=== PATIENT | male | born 1950 | race Caucasian/White ===

== ENCOUNTER 2025-08-24 06:17 | Inpatient (IN) ==
--- NOTE | 2025-08-02 15:05 | Anesthesiology Consultation ---
Date of Service August 02, 2025 Assessment & Plan (1) Encounter for pre-operative examination: Chart Review Chart Review: Pending: Refer to Additional Notes / Consult section (Please obtain Cardio Clearance from (seen 07/29/25) as well as ask Surgeon office if pt is repeating labs prior to surgery) and Patient NOT seen in Pre Admission Testing Infectious Disease screening: Per PAT nursing assessment on 08/02/25, No known infectious disease contacts in past 10 days or current infectious disease symptoms. No recent travel outside the country. History Surgery Operation Date: 08/11/25 10:20 Proposed Procedures p Percutaneous Endovascular Abdominal Aneurysm Repair - Solomon Gillis MD Height/Weight Height: 5 ft 9 in Weight: 88.451 kg Allergies Allergy/AdvReac Type Severity Reaction Status Date / Time metformin AdvReac Mild Diarrhea Verified 08/02/25 13:34 Medications Home Medications Medication Instructions Recorded Confirmed Last Taken acetaminophen 500 mg tablet 500 mg PO Q6H PRN Pain 03/03/24 08/02/25 07/06/25 09:00 amlodipine 10 mg tablet 10 mg PO QAM 03/03/24 08/02/25 07/06/25 19:00 aspirin 81 mg tablet,delayed 81 mg PO DAILY 03/03/24 08/02/25 07/07/25 05:00 release atorvastatin 80 mg tablet 80 mg PO HS 03/03/24 08/02/25 07/07/25 05:00 garlic 1,000 mg capsule 1,000 mg PO DAILY 03/03/24 08/02/25 Unknown glimepiride 2 mg tablet 2 mg PO QAM 03/03/24 08/02/25 07/06/25 19:00 hydrochlorothiazide 25 mg tablet 12.5 mg PO QAM 03/03/24 08/02/25 07/06/25 07:00 insulin glargine 100 unit/mL (3 30 unit subcut QPM 03/03/24 08/02/25 07/06/25 19:00 mL) subcutaneous pen (Basaglar KwikPen U-100 Insulin) isosorbide mononitrate 60 mg 60 mg PO QAM 03/03/24 08/02/25 07/06/25 07:00 tablet,extended release 24 hr lisinopril 30 mg tablet 30 mg PO QAM 03/03/24 08/02/2507/06/25 07:00 metoprolol succinate 100 mg 100 mg PO BID 03/03/24 08/02/25 07/07/25 05:00 tablet,extended release 24 hr (Toprol XL) omega 9-zul-kpa-fish oil 300 1 cap PO DAILY 03/03/24 08/02/25 Unknown mg-1,000 mg capsule (Fish Oil) blood-glucose sensor (Dexcom G7 #9 ea 10/30/24 05/20/25 Unknown Sensor device) cholecalciferol (vitamin D3) 25 25 mcg PO DAILY #30 caps 11/13/24 08/02/25 07/07/25 05:00 mcg (1,000 unit) capsule insulin aspart 5 unit subcut TID #15 mL 11/14/24 08/02/25 Unknown (niacinamide)(U-100) 100 unit/mL(3 mL) subcutaneous pen (Fiasp FlexTouch U-100 Insulin) ibuprofen 200 mg tablet 200 mg PO Q6H PRN Pain 05/20/25 08/02/25 07/06/25 09:00 clopidogrel 75 mg tablet (Plavix) 75 mg PO QAM 07/07/25 08/02/25 07/07/25 05:00 oxycodone 5 mg tablet 5 mg PO Q6H PRN pain #7 tabs 07/08/25 08/02/25 Unknown Past Medical History Medical History (Updated 08/04/25 @ 10:03 by Lluvia Valerio PA-C) AAA (abdominal aortic aneurysm) Infrarenal AAA increased in size, 5.2 x 5x5.7 cm CAD (coronary artery disease) CABG x 2 1998 Carotid artery stenosis s/p R TCAR 07/07/25; pt with chronic L carotid occlusion Chronic pain CKD (chronic kidney disease), stage III follows with neph dr. 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 Chávez to manage, trying medication adjustments. Lung nodule Mesenteric artery stenosis Per Vascular note, pt had imaging 06/08/2025 which demonstrates AAA measuring 5.1 cm in diameter, mild plaque at his celiac artery, and at least 50% stenosis of his SMA, occlusion versus near occlusion of his left renal artery and left renal atrophy with multiple cysts throughout both kidneys. Postoperative urinary retention Renal artery stenosis Per Vascular note, pt had imaging 06/08/2025 which demonstrates AAA measuring 5.1 cm in diameter, mild plaque at his celiac artery, and at least 50% stenosis of his SMA, occlusion versus near occlusion of his left renal artery and left renal atrophy with multiple cysts throughout both kidneys. Shoulder arthritis Sleep apnea unable to tolerate cpap Past Surgical History Surgical History (Updated 08/04/25 @ 10:03 by Lluvia Valerio PA-C) History of epidural steroid injection into lumbar spine History of lumbar surgery due to L3 disc herniation, [facility] Hx laparoscopic cholecystectomy (2018) Hx of basal cell carcinoma excision Hx of CABG (09/1999) x2 vessel- [facility]- follows with cardio Dr. Chávez (~ 1 month) Hx of cardiac catheterization (09/1999) went on to have CABG at [place], [place], follows with Dr. Chávez Hx of colonoscopy with polypectomy Hx of shoulder surgery (1989) right shoulder / tendon repair S/P vascular surgery 07/07/25 > right TCAR: GA: MAC#3, ETT#8.0, DVL x 1 atraumatic, Gr View 1 Social History Smoking Status: Former smoker Do You Dip or Chew Tobacco: No Smoking End Date: quit ~35-40 yrs ago Hx Alcohol Use: Yes Alcohol type: beer alcohol intake frequency: a few times a week Hx Substance Use: Yes (occasional use - advised) substance use type: marijuana Lab Results Anesthesia Preop Results Results Anesthesia Widget: WBC 9.68 K/ul (4.8-10.8) 07/02/25 Hgb 14.4 g/dl (14.0-18.0) 07/02/25 Hct 45.4 % (42.0-52.0) 07/02/25 Plt 175 K/uL (130-400) 07/02/25 Na 143 mmol/L (136-145) 07/07/25 K 4.3 mmol/L (3.5-5.1) 07/07/25 Cl 110 mmol/L (98-107) H 07/07/25 CO2 26 mmol/L (21-32) 07/07/25 BUN 39 mg/dl (6-23) H 07/07/25 Creat 1.66 mg/dl (0.6-1.4) H 07/07/25 Glucose Level 159 mg/dl (70-99(Fasting)) H 07/07/25 POC Glucose 101 mg/dl (70-99) H 07/08/25 PT 11.4 Seconds (9.0-12.0) 07/02/25 PTT 27 Seconds (21-31) 07/02/25 INR 1.1 (0.9-1.1) 07/02/25 Blood Type A Positive 07/07/25 Antibody Screen NEGATIVE 07/07/25 Testing Electrocardiogram Date: 07/02/25 Findings: + NSR @ (60bpm) indeterminate axis. LBBB. Per Anesthesia Consult 07/05/25, "Per verbal from cardiology provider Jyoti IRWIN "No changes on EKG from previous. Patient cleared for surgery." Chest X-Ray Date: 07/02/25 Findings: + NAD Echocardiogram Date: 04/07/24 EF: 50-55% LV Function: normal RWMA: + none Wall thickness is mildly increased. RSVP 19mmHg Mild-Mod MR. Mild AR. Other Testing Neck CTA 06/08/25 Occlusion or near occlusion of the left ICA Occlusion or near occlusion of the right vertebral artery Approximately 75% stenosis proximal right ICA Prominent nodule in the left thyroid lobe Abdominal CTA 06/08/25 Infrarenal AAA increased in size, 5.2 x 5x5.7 cm Eccentric atheromatous plaque with calcification seen at the origin of coeliac artery causing 20-30% luminal narrowing Atheromatous plaque with calcification seen at the origin of superior mesenteric artery causing 50% luminal narrowing Atheromatous plaque with calcification seen at the origin of right main renal artery causing 50% luminal narrowing Atheromatous plaque with calcification seen at the origin of left main renal artery causing near total occlusion Bilateral common, external and internal iliac arteries show atheromatous plaque with calcification causing 20-30% luminal narrowing Abdominal US 05/21/25 Large distal aortic aneurysm which has increased in size from prior study. CTA characterization is recommended. Within the distal aorta, there is focal aneurysmal dilatation measuring up to 7.5 cm.
[2025-08-24] MEDS ORDERED: MIDAZOLAM HCL 1 MG/ML 2ML VIAL ONE (06:39)
[2025-08-24] MEDS ORDERED: ROCURONIUM BROMIDE 10 MG/ML 5 ML VIAL IV ONE ×2 (06:41→09:13)
[2025-08-24] MEDS ORDERED: PROPOFOL IV EMULSION 10 MG/ML 20 ML VIAL IV ONE (06:41)
[2025-08-24] MEDS ORDERED: ONDANSETRON INJ 2 MG/ML 2 ML VIAL ONE (06:41)
[2025-08-24] MEDS ORDERED: LIDOCAINE 2% 2 ML VIAL/AMP(20MG/ML) INFIL ONE ×2 (06:41)
[2025-08-24] MEDS ORDERED: NITROGLYCERIN 5 MG/ML 10 ML VIAL ONE (06:42)
[2025-08-24] MEDS ORDERED: PHENYLEPHRINE HCL 10 MG/ML VIAL ONE ×3 (06:42→07:09)
[2025-08-24] MEDS ORDERED: DEXAMETHASONE SOD INJ 4 MG/ML VIAL ONE (06:42)
[2025-08-24] MEDS ORDERED: SUCCINYLCHOLINE CHLORIDE 20 MG/ML 10 ML VIAL IV ONE (06:48)
[2025-08-24 06:55] LABS: Anion Gap 7.0 (3-11); Blood Urea Nitrogen 35.0 mg/dl (6-23); Calcium 9.8 mg/dl (8.6-10.3); Carbon Dioxide 26.0 mmol/L (21-32); Chloride 111.0 mmol/L (98-107); Creatinine Clr Calc Pharmacy 45.2 ml/min; Glucose 209.0 mg/dl (70-99(Fasting)); Potassium 4.9 mmol/L (3.5-5.1); Sodium 144.0 mmol/L (136-145)
[2025-08-24] MEDS: SODIUM CHLORIDE 0.9% 1,000 ML IV SCH ×2 (07:00→12:26)
[2025-08-24] MEDS ORDERED: NALOXONE HCL 0.4 MG/1 ML VIAL/CARP IV PRN (07:13)
[2025-08-24] MEDS ORDERED: ATROPINE SULFATE 0.1 MG/ML 10ML SYR IV PRN (07:13)
[2025-08-24] MEDS ORDERED: PROMETHAZINE HCL 6.25 MG in SODIUM CHLORIDE 0.9% 50 ML IV PRN (07:13)
[2025-08-24] MEDS ORDERED: ONDANSETRON INJ 2 MG/ML 2 ML VIAL IV PRN ×2 (07:13→11:53)
[2025-08-24] MEDS ORDERED: FLUMAZENIL 0.1 MG/1 ML 10 ML VIAL IV PRN (07:13)
[2025-08-24] MEDS ORDERED: ETOMIDATE 2 MG/ML 20 ML VIAL IV ONE (07:26)
[2025-08-24] MEDS ORDERED: HEPARIN SOD (PORCINE) 1000 UNIT/ML ONE (07:32)
--- NOTE | 2025-08-24 07:49 | History & Physical Report ---
Date of Service August 24, 2025 History of Present Illness Primary Care Provider: Billie Alvarado PA-C Name: EWELINA LYNN Patient Number: [id number] : 1950 Date of Service: 07/26/2025 Chief Complaint: _AAA, Follow-up after TCAR HPI: _Mr. Lynn is an elderly male who presents to Dr Gillis's vascular surgery clinic for a 2 wk follow up visit after undergoing uncomplicated R TCAR at [facility]. Pt states he is feeling well. No new problems or concerns regarding his neck incision or his groin puncture. Pt denies any sx of cerebrovascular insufficiency, including amaurosis, unilateral weakness numbness or tingling, difficulty speaking or swallowing, facial droop. Patient does state that he would like to proceed with his aneurysm surgery if he is able to do so. Previous imaging had demonstrated him to have an infrarenal AAA measuring 5.1 cm in diameter. This was amenable to endovascular repair. Current Home Meds: (Last Updated 07/26 15:24) acetaminophen (Tylenol 500 mg oral tablet) 1,000 mg PO q6h PRN: as needed for pain amLODIPine (amLODIPine 10 mg oral tablet) TAKE 1 TABLET BY MOUTH ONCE DAILY aspirin (Aspir 81 oral delayed release tablet) 81 mg PO Daily atorvastatin (atorvastatin 80 mg oral tablet) TAKE 1 TABLET BY MOUTH AT BEDTIME cannabis (Medical Marijuana) 1 inh inhaled cholecalciferol (Vitamin D3 25 mcg (1000 intl units) oral tablet) 25 mcg PO Daily clopidogrel (Plavix 75 mg oral tablet) 75 mg PO Daily diabetes supplies (ONERuncomUCH ULTRA BLUE TEST STP) USE 1 STRIP TO CHECK GLUCOSE THREE TIMES DAILY BEFORE MEAL(S) diabetes supplies (COMFORT EZ [id number] MIS) diabetes supplies (ONETOUCH ULTRA ULTRA JONATHAN) diabetes supplies (ONETOUCH ULTRA 2 KIT) garlic (Garlic Oil oral capsule) 1 cap po daily glimepiride (glimepiride 2 mg oral tablet) 2 mg PO Daily hydroCHLOROthiazide (hydroCHLOROthiazide 25 mg oral tablet) TAKE 1/2 (ONE- HALF) TABLET BY MOUTH ONCE DAILY ibuprofen (ibuprofen 200 mg oral capsule) 400 mg PO q6h PRN: as needed for pain insulin glargine (Basaglar KwikPen 100 units/mL subcutaneous solution) 35 unit subQ qPM isosorbide mononitrate (isosorbide mononitrate 30 mg oral tablet, extended release) 60 mg PO qAM IMDUR (isosorbide mononitrate) is a SUSTAINED RELEASE tablet typically dosed daily. Do not confuse with ISORDIL (isosorbide dinitrate) commonly dosed three times daily. - C Murtiff 11/14 08:46 lisinopril (lisinopril 30 mg oral tablet) TAKE 1 TABLET BY MOUTH ONCE DAILY metoprolol (Metoprolol Succinate ER 100 mg oral tablet, extended release) TAKE 1 TABLET BY MOUTH TWICE DAILY omega-3 polyunsaturated fatty acids (EPA Fish Oil oral capsule) 1 cap PO Daily Allergies and Sensitivities: metFORMIN(stomach upset) Past Medical History: Problems: Mesenteric artery stenosis Bilateral carotid artery stenosis AAA (abdominal aortic aneurysm) without rupture Skin lesion OBJECTIVE Vitals: Last Updated 07/26/25 15:26 Date Temp BP Location Pulse RR SpO2 Pain 07/26/25 186/84 Left Arm, Manu 07/26/25 196/90 Right Arm 70 16 97 0 06/28/25 180/82 Left Arm 72 97 0 Vital Signs are the last 3 documented. No Orthostatic Data Available Height and Weight: Last Updated 07/26/25 15:25 Date BMI Wt(kg) Wt(lb) Method Ht(cm) (ft-in) Method 07/26/25 90.4 199 Standing Scale Heights and Weights are the last 3 documented. Physical Exam _Constitutional: In general patient is a healthy-appearing well-nourished well- developed elderly male in no distress. He is alert and oriented without any focal deficits. His right neck supraclavicular incision is well-healed. There is no erythema ecchymosis tenderness or discharge. His groin puncture is well- healed as well. His heart is regular, abdomen is soft nontender with normoactive bowel sounds in all 4 quadrants. Lungs are decreased but clear. Femoral pulses are +3. ASSESSMENT: _ PLAN: _ 1 ) _status post right TCAR Patient is over doing well since his recent procedure. He has no new concerning symptoms and his incision and puncture are healing well. We therefore would recommend that he undergo reevaluation of this in about 6 weeks with carotid US and return to the office at that time. Patient is to remain on his DAPT. This will not be interrupted for his upcoming aneurysm surgery. 2 ) _AAA Patient does have a known abdominal aortic aneurysm, imaging from June 2025 it indicated this to be about 5.1 cm in diameter. After discussion with Dr. Glilis, he recommends that patient be scheduled for percutaneous endovascular aneurysm repair. The procedure benefits and alternatives were discussed with the patient by myself. The risks of the procedure including but not limited to bleeding, infection, blood clots, artery damage requiring further surgery, inappropriate positioning/placement of the endograft requiring open surgery, kidney failure requiring hemodialysis, loss of limb, paralysis, heart attack, , were discussed with the patient by myself at Dr. Gillis's request. Patient expresses understanding and agreement to proceed. Patient's blood pressures were noted to be considerably elevated in our office today at 196/90 mmHg. Patient states that they have been high recently at home. We would suggest improved control of his blood pressure prior to undergoing his procedure. We will request clearance from his global regulatory lead for the upcoming procedure, as well as to assist with improved hypertension control in the perioperative period. Patient is agreeable to this plan. He is asked to call our office with any questions or concerns. Thank you for letting us participate in the care of this patient. I have personally spent_28__ minutes performing [id number] and [id number] activities on this date of service.Time does not include separately reported services. Activities Include: x__ review of the medical record _x_ obtaining a history _x_ physical exam/evaluation __ review labs _x_ review radiology reports _x_ counseling/educating patient/family/caregiver _x_ discussion/referral to other healthcare professional _x_ documenting care in the medical record __ independent interpretation of results _x_ communication of results to patient/family/caregiver _x_ coordination of care Signature Line Electronic Signature on File CC: Billie Alvarado PA-C [facility] [address] [facility] [id number] * CC: Ousmane Chávez MD [facility] [address] [place] [id number] * Electronically Reviewed/Signed by: Dorina Galindo PA-C Author Signature Dt/Tm:07/26/2025 04:29 PM [facility] [address] [place] [address] LM Result Type: HVI Outpt Note Date of Service: July 26, 2025 16:19 EDT Authorization Status: Final Author or Import Date: KAREN Galindo Lynn on July 26, 2025 16:29 EDT Verified By: KAREN Galindo Lynn on July 26, 2025 16:29 EDT Encounter info: [id number], [place] [address], Clinic, 07/26/2025 - 07/26/2025 Allergies Allergy/AdvReac Type Severity Reaction Status Date / Time metformin AdvReac Mild Diarrhea Verified 08/24/25 06:30 Home Medications Medication Instructions Recorded Confirmed Type acetaminophen 500 mg tablet 500 mg PO Q6H PRN Pain 03/03/24 08/24/25 History amlodipine 10 mg tablet 10 mg PO QAM 03/03/24 08/24/25 History aspirin 81 mg tablet,delayed 81 mg PO DAILY 03/03/24 08/24/25 History release atorvastatin 80 mg tablet 80 mg PO HS 03/03/24 08/24/25 History garlic 1,000 mg capsule 1,000 mg PO DAILY 03/03/24 08/24/25 History glimepiride 2 mg tablet 2 mg PO QAM 03/03/24 08/24/25 History hydrochlorothiazide 25 mg tablet 12.5 mg PO QAM 03/03/24 08/24/25 History insulin glargine 100 unit/mL (3 30 unit subcut QPM 03/03/24 08/02/25 History mL) subcutaneous pen (Basaglar KwikPen U-100 Insulin) isosorbide mononitrate 60 mg 60 mg PO QAM 03/03/24 08/24/25 History tablet,extended release 24 hr lisinopril 30 mg tablet 30 mg PO QAM 03/03/24 08/24/25 History metoprolol succinate 100 mg 100 mg PO BID 03/03/24 08/24/25 History tablet,extended release 24 hr (Toprol XL) omega 0-lmk-kyd-fish oil 300 1 cap PO DAILY 03/03/24 08/24/25 History mg-1,000 mg capsule (Fish Oil) blood-glucose sensor (Crossfader G7 #9 ea 10/30/24 05/20/25 Rx Sensor device) cholecalciferol (vitamin D3) 25 25 mcg PO DAILY #30 caps 11/13/24 08/24/25 Rx mcg (1,000 unit) capsule ibuprofen 200 mg tablet 200 mg PO Q6H PRN Pain 05/20/25 08/24/25 History clopidogrel 75 mg tablet (Plavix) 75 mg PO QAM 07/07/25 08/24/25 History oxycodone 5 mg tablet 5 mg PO Q6H PRN pain #7 tabs 07/08/25 08/24/25 Rx doxazosin 2 mg tablet 2 mg PO DAILY 08/24/25 08/24/25 History Past Med/Surg History Problem List S/P vascular surgery Stenosis of right internal carotid artery Hyperlipidemia with target low density lipoprotein (LDL) cholesterol less than 70 mg/dL Diabetes mellitus type 2 with complications Kidney calculi Lung nodule Fecal incontinence Vitamin D deficiency Chronic kidney disease with active medical management without dialysis, stage 3 (moderate) Hypertension Medical History Renal artery stenosis Per Vascular note, pt had imaging 06/08/2025 which demonstrates AAA measuring 5.1 cm in diameter, mild plaque at his celiac artery, and at least 50% stenosis of his SMA, occlusion versus near occlusion of his left renal artery and left renal atrophy with multiple cysts throughout both kidneys. Mesenteric artery stenosis Per Vascular note, pt had imaging 06/08/2025 which demonstrates AAA measuring 5.1 cm in diameter, mild plaque at his celiac artery, and at least 50% stenosis of his SMA, occlusion versus near occlusion of his left renal artery and left renal atrophy with multiple cysts throughout both kidneys. Lung nodule Postoperative urinary retention CAD (coronary artery disease) CABG x 2 1998 AAA (abdominal aortic aneurysm) Infrarenal AAA increased in size, 5.2 x 5x5.7 cm Carotid artery stenosis s/p R TCAR 07/07/25; pt with chronic L carotid occlusion Hx of basal cell carcinoma currently has one spot on right side, to be removed after carotid surgery CKD (chronic kidney disease), stage III follows with neph dr. oswald Sleep apnea unable to tolerate cpap Hypertension having current issues w/ blood pressure control, following with Dr. Chávez to manage, trying medication adjustments. 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 Hx of myocardial infarction 1998 (pt then had CABG) Chronic pain Shoulder arthritis Surgical History S/P vascular surgery 07/07/25 > right TCAR: GA: MAC#3, ETT#8.0, DVL x 1 atraumatic, Gr View 1 Hx of basal cell carcinoma excision Hx of colonoscopy with polypectomy Hx laparoscopic cholecystectomy (2018) History of lumbar surgery due to L3 disc herniation, [facility] History of epidural steroid injection into lumbar spine Hx of shoulder surgery (1989) right shoulder / tendon repair Hx of cardiac catheterization (09/1999) went on to have CABG at [place], [place], follows with Dr. Chávez Hx of CABG (09/1999) x2 vessel- [facility]- follows with cardio Dr. Chávez (~ 1 month) Social History Smoking Status: Former smoker Tobacco Type: Cigarettes Smoking End Date: quit ~35-40 yrs ago; Second Hand Exposure: No; Do You Dip or Chew Tobacco: No; Tobacco Cessation Education Requested by Patient: No Hx Alcohol Use: Yes Alcohol type: beer Alcohol Intake Frequency: Monthly or Less Alcohol Intake Frequency Comment: socially Hx Substance Use: Yes (occasional use - advised) Prescribed Medications: Marijuana Preferred Language: Yoruba Communication Ability: Effective Visual Impairment: No Limitations Hearing Ability: Normal Environmental Field Office Manager Required: No Beliefs That Will Affect Care: None marital status: Current Living Situation: Spouse current occupational status: retired Other Information That Helps Us Care for You: No Feels Safe at Home: Yes Safety Concerns: Feels Safe At This Time Diet: regular caffeine: Yes (soda daily) Dental Care, Regularly: Yes Physical Activity Frequency: 1-2 Times per Week Seatbelt Use: always Do you think of yourself as: straight/heterosexual Gender Identity: Male Assistive Devices: Denture - Upper and Glasses Assistive Devices Comment: upper partial; prn glasses Results & Data Vital Signs (Past 12 Hours) Vital Signs Temp Pulse Resp BP BP Pulse Ox O2 Del Method 08/24/25 06:37 Room Air 08/24/25 06:37 36.6 C 70 16 170/86 H 193/93 H 98 Room Air
--- NOTE | 2025-08-24 07:49 | History & Physical Bridge Note ---
Date of Service August 24, 2025 History & Physical Bridge Note I have examined the patient, reviewed the History & Physical and in the interval since the performance of the History & Physical I have noted the following changes of clinical significance: no changes noted
[2025-08-24] MEDS ORDERED: GLYCOPYRROLATE 0.2 MG/ML VIAL ONE (09:06)
[2025-08-24] MEDS ORDERED: SUGAMMADEX SODIUM 200 MG/2 ML VIAL IV ONE (09:21)
[2025-08-24] MEDS: VISIPAQUE IV PRN (09:34)
--- NOTE | 2025-08-24 09:45 | Procedure Note ---
Angiogram Post Procedure Fluoroscopy Time (minutes): 10.8 Radiation (mGy): 245 Contrast: 115 Post Operative Report Pre & Post Diagnosis Operation Date: 08/24/25 08:00 Pre-Op Diagnosis: Abdominal Aortic Aneurysm Post-Op Diagnosis: Abdominal Aortic Aneurysm I identified the patient and participated in the time-out.: Yes Procedure Operation Date: 08/24/25 08:00 Actual Procedures p Percutaneous Endovascular Abdominal Aortic Aneurysm Repair,Mechanical Closure of Bilateral Femoral Arteries(Bilateral) - Solomon Gillis MD Surgeon Solomon Gillis MD [employer] Helper none Estimated Blood Loss 50 Findings Consistent with Post-Op Diagnosis Specimens none Anesthesia Type General Complications none Disposition Accompanied Patient To Recovery: No Disposition: Recovery Room Indications This is a 75-year-old gentleman with a 5.1 cm abdominal aortic aneurysm. We recommended repair. He was a candidate for an endovascular repair. I have discussed the risks options and benefits of the procedure with the patient. The patient understands the risks options and benefits and agrees to the procedure. Description of Procedure The patient was brought to the OR and placed in supine position. Patient was intubated and general anesthesia was accomplished. A safety timeout was performed to identify patient's name, date of and the correct procedure. Abdomen and groins were prepped and draped in sterile fashion. Ultrasound guided percutaneous access of the right groin was performed. The right common femoral artery was patent. A percutaneous puncture was made in the right common femoral artery using ultrasound. The depth finder for the Manta device was used to me asure the depth of the puncture. It was found to be 4 cm. The depth finder was removed and the 8 [place] sheath inserted. We turned our attention to the right side and we similarly accessed the left common femoral artery. The left common femoral artery was patent. Using ultrasound left common femoral artery was punctured. The depth finder was used to measure the depth of the puncture of the left side and also found to be 3.5 cm from the skin edge. This was removed and 8 [place] sheath was inserted. Patient was heparinized with 8000 of IV heparin. Through the right groin, we advanced a soft Glidewire followed by a Kumpe catheter. The wire then was exchanged for a stiff Kiana wire. We then cannulated the aorta from the left side using 035 Glidewire and a Kumpe catheter. Once this was placed in the super renal aorta the wire was exchanged to a Kiana wire.. We then upsized our access on the right side with a 12 [place] dilator and subsequently to 16 [place] dry seal sheath. The left groin sheath was then exchanged to a 12 [place] dry seal sheath. The sheaths were advanced all the way up in the aortic sac. A marker pig was inserted to the left groin. Aortography was performed. The level of the renal arteries were marked on the screen. The left renal artery had a known total occlusion. This showed patency of the right renal artery and a acceptable neck for deployment of the graft. We advanced the device ([place] excluder conformable 20 mm x 14.5 mm x 12 cm) through the right sheath. The shaft of the graft was then deployed. An aortogram was performed. Both renal arteries were visualized just above the top of the deployed graft. Aortogram confirmed good location of the proximal end of the graft. The hooks were then deployed. Cannulation of the gate was then accomplished using an 035 glidewire and a Right Hemispherepke catheter. The wire spun easily in the neck of the graft. The 035 Glidewire was removed and a Kiana wire was reinserted. A marker pigtail was then inserted over the Jensen wire. The 12 [place] sheath was then pulled down into the external iliac and an arteriogram was performed of the left iliac system. This identified the origin of the hypogastric and the left side. We then removed the pigtail. We reinserted a 12 [place] sheath dilator and advanced the sheath into the gate of the graft. Prior to inserting the contralateral limb we deployed the ipsilateral limb to complete the deployment of the graft. The device was then removed from the right groin. We then inserted an 16mm x 14.5 mm x 14 contralateral limb. The 12 [place] sheath was then pulled down to below the level of the contralateral limb. Contralateral limb was then deployed without difficulty. The 16 [place] sheath on the right side was then pulled down into the pelvis. Hand-injection was then performed to cony where the bifurcation of the common iliac artery was. We then chose a 16 x 14.5 x 10 contralateral limb to extend the right side limb. The graft was advanced to the 16 [place] sheath. It was deployed with the distal end falling just above the iliac bifurcation. The MOB balloon was then inserted through the left sheath. The proximal attachment site, the gate and the distal attachment site were ballooned with the MOB balloon. The balloon was then removed. Was inserted through the right side 16 [place] sheath and then dilated the overlap of the limbs and the distal attachment site of the right limb. The balloon was then removed. The pigtail was then inserted through the left side to above the renal arteries. A final arteriogram was then performed which showed no evidence of a type I endoleak. There appeared to be 2 type II endoleak's in the posterior aspect of the sac. Graft showed no evidence of narrowing throughout. An meirer wire was then reinserted into the pigtail and the pigtail removed. The 12 [place] sheath was then pulled and a 14 [place] Manta device was inserted. This was deployed without difficulty. No bleeding was n oted after deployment. The right groin sheath was then also pulled. An 14 [place] Manta device was inserted and deployed. No evidence of bleeding was seen on the right side either. Sterile dressings were applied to the wounds.The patient left the operation room in satisfactory condition and tolerated the procedure well. All needle and sponge counts were correct at the end of the procedure. I attest to the content of the Intraoperative Record and any orders documented therein. Any exceptions are noted below.
[2025-08-24] MEDS: LABETALOL HCL IV 5 MG/ML 20ML IV STA (10:09)
[2025-08-24 10:12] LABS: Hematocrit (blood only) 37.2 % (42.0-52.0); Hemoglobin 12.0 g/dL (14.0-18.0)
[2025-08-24] MEDS ORDERED: IBUPROFEN 200 MG TAB PO PRN (11:53)
[2025-08-24] MEDS: LABETALOL HCL IV 5 MG/ML 20ML IV ONE (12:09)
--- NOTE | 2025-08-24 12:10 | Critical Care Consultation ---
Date of Consultation August 24, 2025 Assessment & Plan (1) Chronic kidney disease with active medical management without dialysis, stage 3 (moderate): (2) Hypertension: (3) Diabetes mellitus type 2 with complications: (4) Carotid artery stenosis: (5) CAD (coronary artery disease): (6) Hyperlipidemia: (7) Hypertensive urgency: Plan Livan Israel is a 75-year-old male with past medical history of CAD s/p CABG x 2 vessel, [place], HTN, HLD, DMII, AAA, mesenteric stenosis, CKD stage III, ECTOR unable to tolerate CPAP, left carotid occlusion, right carotid stenosis s/p TCAR on 07/07/2025; who presented to [facility] on 08/24/2025 for a planned (PEVAR) percutaneous endovascular abdominal aortic aneurysm repair. Abdominal aortic aneurysm; mesenteric stenosis -Neurovascular checks per protocol -Maintain SBP > 100 and < 180. -Vascular surgery primary, following Right carotid stenosis s/p right TCAR; chronic left carotid occlusion -Cont ASA and plavix. Hypertension; Hyperlipidemia; CAD s/p 2 vessel CABG -Cont atorvastatin -Cont amlodipine, HCTZ, lisinopril, and metoprolol. -Cont isosorbide mononitrate Chronic kidney disease stage III -Creatinine baseline 1.5-1.6 -Monitor renal function qam Diabetes Mellitus Type II -Maintain BG 140-180 -On 30 units glargine qhs -Hypoglycemia protocol ordered Urinary retention -Ferreira in place. Will maintain at this time. -Cont doxazosin. Thank you for allowing us to participate in this patient's care. Please feel free to reach out with questions or concerns. Supervising Physician Co-Signing Physician Notes I saw and evaluated the patient with DC Hinton, and agree with findings and plan as documented in the note. 75-year-old male admitted to the hospital post PEVAR In the PACU patient had some bleeding from the left colon for which he had compression dressing placed. At the time of examination patient's was in the room Systolic blood pressure was in the 170s to 180s, heart rate in the 70s. Patient was not in any distress He denied any chest pain, no shortness of breath No abdominal pain, no nausea or vomiting No headache, no blurry vision. The only complaint he had was some discomfort in the groin area. Constitutional: No acute distress HEENT: EOMI, PERRLA Respiratory system: Good air entry bilaterally, no wheeze, no rhonchi, no crackles CVS: S1-S2 positive, no murmurs or gallops Abdomen: Soft, nontender, nondistended, positive bowel sounds x4, obese Extremities: +2 pulses bilaterally radialis/+1 bilateral dorsalis pedis, no cyanosis, no edema, warm bilateral lower extremity Neuro: Awake alert oriented x3 Psych: Normal mood and affect G/U: Positive Ferreira --Prophylaxis VTE: None GI: None Lines: Right radial, peripheral Diet: Cardiac Plan: Strict in and out Monitor for pulses bilateral lower extremity Monitor for signs of any bleeding Postop antibiotic as per surgery Patient blood pressure is a bit on the higher side, he is complaining of some groin discomfort, will give him some pain medication. Will start the patient on nicardipine drip, case discussed with surgery Please note the above document was generated using voice recognition software. It may contain grammatical, syntax or spelling errors.Any formal questions or concerns about the content, text or information contained within the body of this dictation should be directly addressed to the provider for clarification. History of Present Illness Attending Physician: Solomon Gillis MD History of Present Illness Nico Israel is a 75-year-old male with past medical history of CAD s/p CABG x 2 vessel, [place], HTN, HLD, DMII, AAA, mesenteric stenosis, CKD stage III, ECTOR unable to tolerate CPAP, left carotid occlusion. right carotid stenosis s/p right TCAR on 07/07/2025; who presented to [facility] on 08/24/2025 for a planned (PEVAR) percutaneous endovascular abdominal aortic aneurysm repair. In the June 2025 imaging had shown a 5.1cm abdominal aortic aneurysm that was amendable to repair. On the post TCAR follow visit with Dr. Gillis's vascular surgery clinic on 07/26/2025 the aneurysm was discussed along with risk and potential for repair. Patient elected to move forward with PEVAR. Per report the procedure went well without complication. Patient was hypertensive post operatively requiring multiple doses of labetalol and hydralazine. Routine assessment in recovery noted pulsatile bleeding for the left femoral access site. Pressure was held and hemostasis was achieved. Patient brought to ICU post operatively for continued evaluation and management of percutaneous endovascular repair of abdominal aortic aneurysm. Allergies Allergy/AdvReac Type Severity Reaction Status Date / Time metformin AdvReac Mild Diarrhea Verified 08/24/25 06:30 Home Medications Medication Instructions Recorded Confirmed Type acetaminophen 500 mg tablet 500 mg PO Q6H PRN Pain 03/03/24 08/24/25 History amlodipine 10 mg tablet 10 mg PO QAM 03/03/24 08/24/25 History aspirin 81 mg tablet,delayed 81 mg PO DAILY 03/03/24 08/24/25 History release atorvastatin 80 mg tablet 80 mg PO HS 03/03/24 08/24/25 History garlic 1,000 mg capsule 1,000 mg PO DAILY 03/03/24 08/24/25 History glimepiride 2 mg tablet 2 mg PO QAM 03/03/24 08/24/25 History hydrochlorothiazide 25 mg tablet 12.5 mg PO QAM 03/03/24 08/24/25 History insulin glargine 100 unit/mL (3 30 unit subcut QPM 03/03/24 08/02/25 History mL) subcutaneous pen (RSensaglar KwikPen U-100 Insulin) isosorbide mononitrate 60 mg 60 mg PO QAM 03/03/24 08/24/25 History tablet,extended release 24 hr lisinopril 30 mg tablet 30 mg PO QAM 03/03/24 08/24/25 History metoprolol succinate 100 mg 100 mg PO BID 03/03/24 08/24/25 History tablet,extended release 24 hr (Toprol XL) omega 9-fdh-tff-fish oil 300 1 cap PO DAILY 03/03/24 08/24/25 History mg-1,000 mg capsule (Fish Oil) blood-glucose sensor ([employer] G7 #9 ea 10/30/24 05/20/25 Rx Sensor device) cholecalciferol (vitamin D3) 25 25 mcg PO DAILY #30 caps 11/13/24 08/24/25 Rx mcg (1,000 unit) capsule ibuprofen 200 mg tablet 200 mg PO Q6H PRN Pain 05/20/25 08/24/25 History clopidogrel 75 mg tablet (Plavix) 75 mg PO QAM 07/07/25 08/24/25 History oxycodone 5 mg tablet 5 mg PO Q6H PRN pain #7 tabs 07/08/25 08/24/25 Rx doxazosin 2 mg tablet 2 mg PO DAILY 08/24/25 08/24/25 History Patient History Medical History (Updated 08/24/25 @ 14:54 by Marly Kang MD, [facility]) Renal artery stenosis Per Vascular note, pt had imaging 06/08/2025 which demonstrates AAA measuring 5.1 cm in diameter, mild plaque at his celiac artery, and at least 50% stenosis of his SMA, occlusion versus near occlusion of his left renal artery and left renal atrophy with multiple cysts throughout both kidneys. Mesenteric artery stenosis Per Vascular note, pt had imaging 06/08/2025 which demonstrates AAA measuring 5.1 cm in diameter, mild plaque at his celiac artery, and at least 50% stenosis of his SMA, occlusion versus near occlusion of his left renal artery and left renal atrophy with multiple cysts throughout both kidneys. Lung nodule Postoperative urinary retention CAD (coronary artery disease) CABG x 2 1998 AAA (abdominal aortic aneurysm) Infrarenal AAA increased in size, 5.2 x 5x5.7 cm Carotid artery stenosis s/p R TCAR 07/07/25; pt with chronic L carotid occlusion Hx of basal cell carcinoma currently has one spot on right side, to be removed after carotid surgery CKD (chronic kidney disease), stage III follows with neph dr. oswald Sleep apnea unable to tolerate cpap Hypertension having current issues w/ blood pressure control, following with Dr. Chávez to manage, trying medication adjustments. 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 Hx of myocardial infarction 1998 (pt then had CABG) Chronic pain Shoulder arthritis Surgical History S/P vascular surgery 07/07/25 > right TCAR: GA: MAC#3, ETT#8.0, DVL x 1 atraumatic, Gr View 1 Hx of basal cell carcinoma excision Hx of colonoscopy with polypectomy Hx laparoscopic cholecystectomy (2018) History of lumbar surgery due to L3 disc herniation, [facility] History of epidural steroid injection into lumbar spine Hx of shoulder surgery (1989) right shoulder / tendon repair Hx of cardiac catheterization (09/1999) went on to have CABG at [place], [place], follows with Dr. Chávez [facility] Dr. [facility] (~ 1 month) Social History Smoking Status: Former smoker Tobacco Type: Cigarettes Smoking End Date: quit ~35-40 yrs ago; Second Hand Exposure: No; Do You Dip or Chew Tobacco: No; Tobacco Cessation Education Requested by Patient: No Hx Alcohol Use: Yes Alcohol type: beer Alcohol Intake Frequency: Monthly or Less Alcohol Intake Frequency Comment: socially Hx Substance Use: Yes (occasional use - advised) Prescribed Medications: Marijuana Preferred Language: Irish Communication Ability: Effective Visual Impairment: No Limitations Hearing Ability: Normal Face Boss Required: No Beliefs That Will Affect Care: None marital status: Current Living Situation: Spouse current occupational status: retired Other Information That Helps Us Care for You: No Feels Safe at Home: Yes Safety Concerns: Feels Safe At This Time Diet: regular caffeine: Yes (soda daily) Dental Care, Regularly: Yes Physical Activity Frequency: 1-2 Times per Week Seatbelt Use: always Do you think of yourself as: straight/heterosexual Gender Identity: Male Assistive Devices: Denture - Upper and Glasses Assistive Devices Comment: upper partial; prn glasses Review of Systems 2 Review of Systems: All systems reviewed & are unremarkable except as noted in HPI & below Physical Exam 2 Physical Exam: VITALS: Reviewed. WEIGHT/BMI reviewed. GEN: Pleasant, well-developed, NAD. PSYCH: Good Judgment. AOx3. Normal memory, mood, and affect. HEENT -Head: NC/AT; -Eyes: PERRL, EOMI. No discharge or redn ess; -Ears: External ears are normal. -Nose: Normal nares. NECK: Supple, with no masses. CV: RRR, no m/r/g. LUNGS: Clear in b/l upper lobes, diminished in b/l lower lobes. Chest rise symmetrical. Breathing nonlabored. ABD: Soft, NT/ND, NBS, no masses or organomegaly. : Ferreira draining yellow clear urine. SKIN: Warm, well perfused. No skin rashes or abnormal lesions. MSK: No deformities, Normal gait. bilateral groin access site with dressing in place. No hematoma or bleeding. EXT: No clubbing, cyanosis, or edema. Warm well perfused. PT and DP pulses in b/l lower extremities. NEURO:Normal muscle strength and tone. No focal deficits. Results & Data Results & Data Vital Signs (Past 12 Hours) Vital Signs Temp Pulse Pulse Pulse Resp BP BP 08/24/25 11:53 36.6 C 08/24/25 11:30 36.4 C L 70 16 151/71 H 08/24/25 11:20 71 14 152/73 H 08/24/25 11:10 73 22 173/80 H 08/24/25 11:00 71 18 172/84 H 08/24/25 10:50 69 18 163/89 H 08/24/25 10:40 66 22 132/76 08/24/25 10:30 75 16 183/94 H 08/24/25 10:20 76 17 183/89 H 08/24/25 10:10 72 11 L 196/94 H 08/24/25 10:09 71 196/94 H 08/24/25 10:00 73 13 189/92 H 08/24/25 09:51 36.3 C L 74 18 191/90 H 08/24/25 06:37 08/24/25 06:37 36.6 C 70 16 170/86 H BP BP Pulse Ox O2 Del Method O2 Flow Rate 08/24/25 11:53 08/24/25 11:30 161/61 H 96 Nasal Cannula 2 08/24/25 11:20 166/63 H 96 Nasal Cannula 2 08/24/25 11:10 183/70 H 98 Nasal Cannula 2 08/24/25 11:00 191/74 H 97 Nasal Cannula 2 08/24/25 10:50 191/72 H 99 Nasal Cannula 2 08/24/25 10:40 164/74 H 99 Nasal Cannula 2 08/24/25 10:30 200/77 H 95 Nasal Cannula 2 08/24/25 10:20 199/79 H 92 Room Air 08/24/25 10:10 205/86 H 94 Room Air 08/24/25 10:09 08/24/25 10:00 201/83 H 95 Room Air 08/24/25 09:51 202/85 H 98 Oxymask 4 08/24/25 06:37 Room Air 08/24/25 06:37 193/93 H 98 Room Air Laboratory Results 08/24/25 09:59 08/24/25 06:16 Critical Care Results & Data Vital Signs (Past 12 Hours) Vital Signs Temp Pulse Pulse Pulse Resp BP BP 08/24/25 11:53 36.6 C 08/24/25 11:30 36.4 C L 70 16 151/71 H 08/24/25 11:20 71 14 152/73 H 08/24/25 11:10 73 22 173/80 H 08/24/25 11:00 71 18 172/84 H 08/24/25 10:50 69 18 163/89 H 08/24/25 10:40 66 22 132/76 08/24/25 10:30 75 16 183/94 H 08/24/25 10:20 76 17 183/89 H 08/24/25 10:10 72 11 L 196/94 H 08/24/25 10:09 71 196/94 H 08/24/25 10:00 73 13 189/92 H 08/24/25 09:51 36.3 C L 74 18 191/90 H 08/24/25 06:37 08/24/25 06:37 36.6 C 70 16 170/86 H BP BP Pulse Ox O2 Del Method O2 Flow Rate 08/24/25 11:53 08/24/25 11:30 161/61 H 96 Nasal Cannula 2 08/24/25 11:20 166/63 H 96 Nasal Cannula 2 08/24/25 11:10 183/70 H 98 Nasal Cannula 2 08/24/25 11:00 191/74 H 97 Nasal Cannula 2 08/24/25 10:50 191/72 H 99 Nasal Cannula 2 08/24/25 10:40 164/74 H 99 Nasal Cannula 2 08/24/25 10:30 200/77 H 95 Nasal Cannula 2 08/24/25 10:20 199/79 H 92 Room Air 08/24/25 10:10 205/86 H 94 Room Air 08/24/25 10:09 08/24/25 10:00 201/83 H 95 Room Air 08/24/25 09:51 202/85 H 98 Oxymask 4 08/24/25 06:37 Room Air 08/24/25 06:37 193/93 H 98 Room Air Lab & Micro Results (Past 24 Hours) 2 Hgb 12.0 g/dL (14.0-18.0) L 08/24/25 Hct 37.2 % (42.0-52.0) L 08/24/25 2 Na 144 mmol/L (136-145) 08/24/25 K 4.9 mmol/L (3.5-5.1) 08/24/25 Cl 111 mmol/L (98-107) H 08/24/25 CO2 26 mmol/L (21-32) 08/24/25 Anion Gap 7 (3-11) 08/24/25 BUN 35 mg/dl (6-23) H 08/24/25 Creatinine 1.56 mg/dl (0.6-1.4) H 08/24/25 BUN/Creatinine Ratio 22.4 (10-20) H 08/24/25 Glu 209 mg/dl (70-99(Fasting)) H 08/24/25 Ca 9.8 mg/dl (8.6-10.3) 08/24/25 2 Calcium Level 9.8 mg/dl (8.6-10.3) 08/24/25 06:16 I & O Totals 24 Hours 08/23/25 08/24/25 08/25/25 06:59 06:59 06:59 Intake Total 1500 / 1500 Output Total 200 / 200 Balance 1300 / 1300 Cumulative 07/29/25 10:51 thru 08/24/25 12:02 Intake Total 1500 Output Total 200 Balance 1300 RT Ventilator Mngmt (Last Documented) Ventilator Ordered Settings Respiratory Rate 16 08/24/25 11:30 Ventilator - PT Measurements Respiratory Rate 16 Coding Level of Care Code 23225 INT INP/OBS CARE 3/75MIN Diagnoses Chronic kidney disease with active medical management without dialysis, stage 3 (moderate) N18.30 Hypertension I10 Hypertension type: unspecified Diabetes mellitus type 2 with complications E11.8 Carotid artery stenosis I65.29 CAD (coronary artery disease) I25.10 Hyperlipidemia E78.5 Hypertensive urgency I16.0 (2) Hypertension Hypertension type: unspecified Qualified Code(s): I10 - Essential (primary) hypertension
[2025-08-24] MEDS ORDERED: GLUCAGON FOR INJ 1 MG VIAL SQ PRN (12:15)
[2025-08-24] MEDS ORDERED: CARBOHYDRATES FOR HYPOGLYCEMIA PO PRN (12:15)
[2025-08-24] MEDS ORDERED: GLUCOSE 40% GEL 15 GM TUBE PO PRN (12:15)
[2025-08-24] MEDS ORDERED: DEXTROSE 50% 50 ML SYRINGE IV PRN (12:15)
[2025-08-24] MEDS ORDERED: GLUCOSE 10 TAB/TUBE PO PRN (12:15)
--- NOTE | 2025-08-24 12:20 | Anesthesiology Progress Note ---
Date of Service August 24, 2025 Anesthesia Post Procedure Vital Signs Vital Signs: Temp Pulse Pulse Pulse Resp BP BP 08/24/25 11:53 36.6 C 08/24/25 11:30 36.4 C L 70 16 151/71 H 08/24/25 11:20 71 14 152/73 H 08/24/25 11:10 73 22 173/80 H 08/24/25 11:00 71 18 172/84 H 08/24/25 10:50 69 18 163/89 H 08/24/25 10:40 66 22 132/76 08/24/25 10:30 75 16 183/94 H 08/24/25 10:20 76 17 183/89 H 08/24/25 10:10 72 11 L 196/94 H 08/24/25 10:09 71 196/94 H 08/24/25 10:00 73 13 189/92 H 08/24/25 09:51 36.3 C L 74 18 191/90 H 08/24/25 06:37 08/24/25 06:37 36.6 C 70 16 170/86 H BP BP Pulse Ox O2 Del Method O2 Flow Rate 08/24/25 11:53 08/24/25 11:30 161/61 H 96 Nasal Cannula 2 08/24/25 11:20 166/63 H 96 Nasal Cannula 2 08/24/25 11:10 183/70 H 98 Nasal Cannula 2 08/24/25 11:00 191/74 H 97 Nasal Cannula 2 08/24/25 10:50 191/72 H 99 Nasal Cannula 2 08/24/25 10:40 164/74 H 99 Nasal Cannula 2 08/24/25 10:30 200/77 H 95 Nasal Cannula 2 08/24/25 10:20 199/79 H 92 Room Air 08/24/25 10:10 205/86 H 94 Room Air 08/24/25 10:09 08/24/25 10:00 201/83 H 95 Room Air 08/24/25 09:51 202/85 H 98 Oxymask 4 08/24/25 06:37 Room Air 08/24/25 06:37 193/93 H 98 Room Air Pain Intensity Bilateral Groin: Pain Intensity: 1 Transfer of Care Handoff Completed per policy Notes Mental Status: alert / awake / arousable Patient Amnestic to Procedure: Yes Nausea / Vomiting: adequately controlled Pain: adequately controlled Airway Patency, RR, SpO2: stable & adequate BP & HR: stable & adequate Hydration State: stable & adequate Anesthetic Complications: no major complications apparent
[2025-08-24] MEDS ORDERED: STAT IV Infusion **Titration per Protocol STA (14:47)
[2025-08-24] MEDS ORDERED: PHARMACY GLYCEMIC MGMT CONSULT PRN (15:43)
[2025-08-24] MEDS: INSULIN ASPART PER UNIT CHARGE SC SCH (16:42)
[2025-08-24] MEDS: ACETAMINOPHEN 500 MG TAB PO PRN (20:01)
[2025-08-24] MEDS: ATORVASTATIN 40 MG TAB PO SCH (20:02)
[2025-08-24] MEDS: METOPROLOL SUCC 50MG EXT REL TAB PO SCH (20:03)
[2025-08-24] MEDS: LANTUS PER UNIT CHARGE SC ONE ×2 (20:15→23:31)
[2025-08-24] MEDS ORDERED: LANTUS PER UNIT CHARGE SC SCH (21:00)
[2025-08-24] MEDS ORDERED: NON-FORMULARY MEDICATION (Insulin Glargine [Basaglar Kwikpen U-100 Insulin] 100 unit/mL (3 SQ SCH (21:00)
[2025-08-25] MEDS: INSULIN ASPART PER UNIT CHARGE SC SCH
[2025-08-25] MEDS: LABETALOL HCL IV 5 MG/ML 20ML IV STA (03:16)
[2025-08-25 05:04] LABS: Hematocrit (blood only) 37.2 % (42.0-52.0); Hemoglobin 12.0 g/dL (14.0-18.0); Immature Granulocytes # (auto) 0.05 K/uL (0.01-0.20); Immature Granulocytes % (auto) 0.4 %; Mean Corpuscular Hemoglobin 26.8 pg (25.0-34.0); Mean Corpuscular Volume 83.2 fL (80.0-100.0); Platelet Count 154 K/uL (130-400); RDW Standard Deviation 40.3 fL (36.4-46.3); Red Blood Count 4.47 M/uL (4.70-6.10); White Blood Count 13.69 K/ul (4.8-10.8)
[2025-08-25 05:20] LABS: Anion Gap 8.0 (3-11); Blood Urea Nitrogen 36.0 mg/dl (6-23); Calcium 8.5 mg/dl (8.6-10.3); Carbon Dioxide 20.0 mmol/L (21-32); Chloride 112.0 mmol/L (98-107); Creatinine Clr Calc Pharmacy 41.9 ml/min; Glucose 161.0 mg/dl (70-99(Fasting)); Potassium 3.9 mmol/L (3.5-5.1); Sodium 140.0 mmol/L (136-145)
[2025-08-25 05:34] VITALS: TEMP 97.9
[2025-08-25] MEDS: DOXAZosin MESYLATE TAB 2 MG TAB PO SCH (08:13)
[2025-08-25 08:14] LABS: Hemoglobin A1C 8.1 % (4.5-5.6)
[2025-08-25] MEDS: CLOPIDOGREL BISULFATE 75 MG TAB PO SCH (08:14)
[2025-08-25] MEDS: ASPIRIN 81 MG ECTAB PO SCH (08:14)
[2025-08-25] MEDS: CHOLECALCIFEROL 25 MCG (1000 UNITS) TAB PO SCH (08:14)
--- NOTE | 2025-08-25 08:14 | Critical Care Progress Note ---
Date of Service August 25, 2025 Assessment & Plan (1) Chronic kidney disease with active medical management without dialysis, stage 3 (moderate): (2) Hypertension: (3) Diabetes mellitus type 2 with complications: (4) Carotid artery stenosis: (5) CAD (coronary artery disease): (6) Hyperlipidemia: (7) Hypertensive urgency: Plan Livan Israel is a 75-year-old male with past medical history of CAD s/p CABG x 2 vessel, [place], HTN, HLD, DMII, AAA, mesenteric stenosis, CKD stage III, ECTOR unable to tolerate CPAP, left carotid occlusion, right carotid stenosis s/p TCAR on 07/07/2025; who presented to [facility] on 08/24/[facility]25 for a planned (PEVAR) percutaneous endovascular abdominal aortic aneurysm repair. Abdominal aortic aneurysm; mesenteric stenosis -Neurovascular checks per protocol -Maintain SBP > 100 and < 180. -Vascular surgery primary, following Right carotid stenosis s/p right TCAR; chronic left carotid occlusion -Cont ASA and plavix. Hypertension; Hyperlipidemia; CAD s/p 2 vessel CABG -Cont atorvastatin -Cont amlodipine, HCTZ, lisinopril, and metoprolol. -Cont isosorbide mononitrate Hypertensive urgency -On cardene gtt at 5mg/hr. -Wean off as tolerated -maintain SBP < 180. No signs of organ dysfunction. Chronic kidney disease stage III -Creatinine baseline 1.5-1.6 -Monitor renal function qam Diabetes Mellitus Type II -Maintain BG 140-180 -On 30 units glargine qhs -Hypoglycemia protocol ordered Urinary retention -Ferreira in place. Will maintain at this time. -Cont doxazosin. Thank you for allowing us to participate in this patient's care. Please feel free to reach out with questions or concerns. Admission and Anticipated Discharge Date Admission Date: August 24, 2025 Supervising Physician Co-Signing Physician Notes I saw and evaluated the patient with DC Hinton, and agree with findings and plan as documented in the note. Patient seen and examined at bedside. No acute distress, no adverse events overnight He was sitting on the chair at the time of examination Saturating 97% on room air, systolic blood pressure was in the 130s On nifedipine 4.5. Which I discontinued while I was in the room Fair appetite, denied any discomfort in the abdomen No nausea or vomiting Constitutional: No acute distress HEENT: EOMI, PERRLA Respiratory system: Good air entry bilaterally, no wheeze, no rhonchi, no crackles CVS: S1-S2 positive, no murmurs or gallops Abdomen: Soft, nontender, nondistended, positive bowel sounds x4, obese Extremities: +2 pulses bilaterally radialis/+1 bilateral dorsalis pedis, no cyanosis, no edema, warm bilateral lower extremity Neuro: Awake alert oriented x3 Psych: Normal mood and affect G/U: Positive Ferreira --Prophylaxis VTE: None GI: None Lines: Right radial, peripheral Diet: Cardiac Plan: In/out: +2.18 L, urine output 885 Chemistry showed metabolic acidosis, UA was ordered but did not show any signs of ketosis DC Ferreira DC radial line Disposition as per vascular surgery Please note the above document was generated using voice recognition software. It may contain grammatical, syntax or spelling errors.Any formal questions or concerns about the content, text or information contained within the body of this dictation should be directly addressed to the provider for clarification. Subjective Patient with SBP consistently above 180mmHg. Discussed with vascular surgeon and nicardipine gtt initiated yesterday afternoon. Cardene gtt maintained at 5mg/hr. Will work on weaning Cardene off after morning BP meds. Patient otherwise doing well without issues postoperatively for PEVAR. Review of Systems Review of Systems: All systems reviewed & are unremarkable except as noted in HPI & below Physical Exam Physical Exam: VITALS: Reviewed. WEIGHT/BMI reviewed. GEN: Pleasant, well-developed, NAD. PSYCH: Good Judgment. AOx3. Normal memory, mood, and affect. HEENT -Head: NC/AT; -Eyes: PERRL, EOMI. No discharge or redn ess; -Ears: External ears are normal. -Nose: Normal nares. NECK: Supple, with no masses. CV: RRR, no m/r/g. LUNGS: Clear in b/l upper lobes, diminished in b/l lower lobes. Chest rise symmetrical. Breathing nonlabored. ABD: Soft, NT/ND, NBS, no masses or organomegaly. : Ferreira draining yellow clear urine. SKIN: Warm, well perfused. No skin rashes or abnormal lesions. MSK: No deformities, Normal gait. bilateral groin access site with dressing in place. No hematoma or bleeding. EXT: No clubbing, cyanosis, or edema. Warm well perfused. PT and DP pulses in b/l lower extremities. NEURO:Normal muscle strength and tone. No focal deficits. Results & Data Results & Data Vital Signs (Past 12 Hours) Vital Signs Temp Pulse Resp BP Pulse Ox O2 Del Method 08/25/25 05:34 36.6 C 08/25/25 05:30 143/68 H 08/25/25 05:30 80 16 94 08/25/25 05:21 81 16 96 08/25/25 05:12 77 16 95 08/25/25 05:00 94 08/25/25 04:51 83 18 94 08/25/25 04:42 90 19 93 08/25/25 04:30 160/77 H 08/25/25 04:30 86 13 95 08/25/25 04:21 87 21 96 08/25/25 04:12 171/76 H 08/25/25 04:12 84 16 94 08/25/25 04:12 171/76 H 08/25/25 04:00 85 17 96 08/25/25 04:00 162/72 H 08/25/25 03:51 83 18 94 08/25/25 03:42 82 15 92 08/25/25 03:31 80 157/79 H 08/25/25 03:30 80 18 93 08/25/25 03:30 157/79 H 08/25/25 03:21 83 15 92 08/25/25 03:16 79 167/79 H 08/25/25 03:12 79 15 94 08/25/25 03:00 82 15 94 08/25/25 03:00 167/79 H 08/25/25 02:51 83 13 95 08/25/25 02:42 81 17 92 08/25/25 02:30 166/77 H 08/25/25 02:30 84 18 94 08/25/25 02:21 83 14 95 08/25/25 02:12 83 15 94 08/25/25 02:00 160/73 H 08/25/25 02:00 85 17 94 08/25/25 01:51 83 18 93 08/25/25 01:42 84 18 93 08/25/25 01:30 152/76 H 08/25/25 01:30 84 17 93 08/25/25 01:21 93 H 13 94 08/25/25 01:12 83 18 92 08/25/25 01:00 145/73 H 08/25/25 01:00 88 17 94 08/25/25 00:51 88 18 92 08/25/25 00:42 89 17 91 08/25/25 00:30 149/72 H 08/25/25 00:30 89 17 93 08/25/25 00:21 88 17 92 08/25/25 00:12 88 17 93 08/25/25 00:00 152/73 H 08/25/25 00:00 89 15 94 08/24/25 23:51 88 17 94 08/24/25 23:46 89 08/24/25 23:42 92 H 14 95 08/24/25 23:30 154/74 H 08/24/25 23:30 91 H 18 95 08/24/25 23:21 93 H 18 96 08/24/25 23:12 89 16 94 08/24/25 23:00 89 17 96 08/24/25 23:00 142/69 H 08/24/25 22:51 90 17 96 08/24/25 22:42 91 H 15 95 08/24/25 22:30 93 H 16 95 08/24/25 22:30 143/69 H 08/24/25 22:21 90 17 94 08/24/25 22:12 91 H 19 94 08/24/25 22:00 92 H 14 94 08/24/25 22:00 112/50 L 08/24/25 21:51 90 17 93 08/24/25 21:42 92 H 15 95 08/24/25 21:34 124/61 08/24/25 21:33 94 H 14 95 08/24/25 21:30 89 14 92 08/24/25 21:21 89 19 94 08/24/25 21:12 87 19 94 08/24/25 21:00 36.6 C 08/24/25 21:00 93 H 19 94 08/24/25 21:00 113/47 L 08/24/25 20:51 91 H 17 95 08/24/25 20:42 93 H 16 96 08/24/25 20:30 116/48 L 08/24/25 20:30 91 H 16 96 08/24/25 20:29 Room Air 11/18/25 20:21 96 H 19 98 Critical Care Results & Data Vital Signs (Past 12 Hours) Vital Signs Temp Pulse Resp BP Pulse Ox O2 Del Method 08/25/25 05:34 36.6 C 08/25/25 05:30 143/68 H 08/25/25 05:30 80 16 94 08/25/25 05:21 81 16 96 08/25/25 05:12 77 16 95 08/25/25 05:00 94 08/25/25 04:51 83 18 94 08/25/25 04:42 90 19 93 08/25/25 04:30 160/77 H 08/25/25 04:30 86 13 95 08/25/25 04:21 87 21 96 08/25/25 04:12 171/76 H 08/25/25 04:12 84 16 94 08/25/25 04:12 171/76 H 08/25/25 04:00 85 17 96 08/25/25 04:00 162/72 H 08/25/25 03:51 83 18 94 08/25/25 03:42 82 15 92 08/25/25 03:31 80 157/79 H 08/25/25 03:30 80 18 93 08/25/25 03:30 157/79 H 08/25/25 03:21 83 15 92 08/25/25 03:16 79 167/79 H 08/25/25 03:12 79 15 94 08/25/25 03:00 82 15 94 08/25/25 03:00 167/79 H 08/25/25 02:51 83 13 95 08/25/25 02:42 81 17 92 08/25/25 02:30 166/77 H 08/25/25 02:30 84 18 94 08/25/25 02:21 83 14 95 08/25/25 02:12 83 15 94 08/25/25 02:00 160/73 H 08/25/25 02:00 85 17 94 08/25/25 01:51 83 18 93 08/25/25 01:42 84 18 93 08/25/25 01:30 152/76 H 08/25/25 01:30 84 17 93 08/25/25 01:21 93 H 13 94 08/25/25 01:12 83 18 92 08/25/25 01:00 145/73 H 08/25/25 01:00 88 17 94 08/25/25 00:51 88 18 92 08/25/25 00:42 89 17 91 08/25/25 00:30 149/72 H 08/25/25 00:30 89 17 93 08/25/25 00:21 88 17 92 08/25/25 00:12 88 17 93 08/25/25 00:00 152/73 H 08/25/25 00:00 89 15 94 08/24/25 23:51 88 17 94 08/24/25 23:46 89 08/24/25 23:42 92 H 14 95 08/24/25 23:30 154/74 H 08/24/25 23:30 91 H 18 95 08/24/25 23:21 93 H 18 96 08/24/25 23:12 89 16 94 08/24/25 23:00 89 17 96 08/24/25 23:00 142/69 H 08/24/25 22:51 90 17 96 08/24/25 22:42 91 H 15 95 08/24/25 22:30 93 H 16 95 08/24/25 22:30 143/69 H 08/24/25 22:21 90 17 94 08/24/25 22:12 91 H 19 94 08/24/25 22:00 92 H 14 94 08/24/25 22:00 112/50 L 08/24/25 21:51 90 17 93 08/24/25 21:42 92 H 15 95 08/24/25 21:34 124/61 08/24/25 21:33 94 H 14 95 08/24/25 21:30 89 14 92 08/24/25 21:21 89 19 94 08/24/25 21:12 87 19 94 08/24/25 21:00 36.6 C 08/24/25 21:00 93 H 19 94 08/24/25 21:00 113/47 L 08/24/25 20:51 91 H 17 95 08/24/25 20:42 93 H 16 96 08/24/25 20:30 116/48 L 08/24/25 20:30 91 H 16 96 08/24/25 20:29 Room Air 08/24/25 20:21 96 H 19 98 Lab & Micro Results (Past 24 Hours) RBC 4.47 M/uL (4.70-6.10) L 08/25/25 WBC 13.69 K/ul (4.8-10.8) H 08/25/25 Hgb 12.0 g/dL (14.0-18.0) L 08/25/25 Hct 37.2 % (42.0-52.0) L 08/25/25 MCV 83.2 fL (80.0-100.0) 08/25/25 MCH 26.8 pg (25.0-34.0) 08/25/25 MCHC 32.3 g/dL (32.0-36.0) 08/25/25 RDW Standard Deviation 40.3 fL (36.4-46.3) 08/25/25 RDW Coefficient of Variation 13.3 % (11.5-14.5) 08/25/25 Plt Count 154 K/uL (130-400) 08/25/25 MPV 10.5 fL (9.4-12.4) 08/25/25 Neutrophils (%) (Auto) 81.7 % 08/25/25 Lymphocytes (%) (Auto) 10.1 % 08/25/25 Monocytes # (Auto) 1.01 K/uL (0.11-0.59) H 08/25/25 Eosinophils # (Auto) 0.03 K/uL (0.00-0.50) 08/25/25 Immature Granulocyte % (Auto) 0.4 % 08/25/25 Neutrophils # (Auto) 11.19 K/uL (1.40-6.50) H 08/25/25 Lymphocytes # (Auto) 1.38 K/uL (1.20-3.40) 08/25/25 Monocytes # (Auto) 1.01 K/uL (0.11-0.59) H 08/25/25 Eosinophils # (Auto) 0.03 K/uL (0.00-0.50) 08/25/25 Basophils # (Auto) 0.03 K/uL (0.00-0.20) 08/25/25 Immature Granulocyte # (Auto) 0.05 K/uL (0.01-0.20) 5 Na 140 mmol/L (136-145) 08/25/25 K 3.9 mmol/L (3.5-5.1) 08/25/25 Cl 112 mmol/L (98-107) H 08/25/25 CO2 20 mmol/L (21-32) L 08/25/25 Anion Gap 8 (3-11) 08/25/25 BUN 36 mg/dl (6-23) H 08/25/25 Creatinine 1.68 mg/dl (0.6-1.4) H 08/25/25 BUN/Creatinine Ratio 21.4 (10-20) H 08/25/25 Glu 161 mg/dl (70-99(Fasting)) H 08/25/25 Ca 8.5 mg/dl (8.6-10.3) L 08/25/25 Calcium Level 8.5 mg/dl (8.6-10.3) L 08/25/25 04:39 I & O Totals 24 Hours 08/24/25 08/25/25 08/26/25 06:59 06:59 06:59 Intake Total 3070.417 / 3070.417 Output Total 885 / 885 Balance 2185.417 / 2185.417 Cumulative 07/29/25 10:51 thru 08/25/25 05:51 Intake Total 3070.417 Output Total 885 Balance 2185.417 RT Ventilator Mngmt (Last Documented) Ventilator Ordered Settings Respiratory Rate 16 08/25/25 05:30 Ventilator - PT Measurements Respiratory Rate 16 Coding Level of Care Code 04202 SUB INP/OBS CARE 2/35MIN Diagnoses Chronic kidney disease with active medical management without dialysis, stage 3 (moderate) N18.30 Hypertension I10 Hypertension type: unspecified Diabetes mellitus type 2 with complications E11.8 Carotid artery stenosis I65.29 CAD (coronary artery disease) I25.10 Hyperlipidemia E78.5 Hypertensive urgency I16.0 (2) Hypertension Hypertension type: unspecified Qualified Code(s): I10 - Essential (primary) hypertension
[2025-08-25] MEDS: OMEGA-3 (PURIFIED FISH OIL) 1 GM CAP PO SCH (08:15)
[2025-08-25] MEDS: ISOSORBIDE MONO EXTENDED REL 60 MG TABCR PO SCH (08:15)
[2025-08-25] MEDS: hydroCHLOROthiazide 25 MG TAB PO SCH (08:15)
[2025-08-25] MEDS ORDERED: GLIMEPIRIDE 2 MG TAB PO SCH (09:00)
[2025-08-25 10:04] VITALS: RESP 15; O2SAT 94
[2025-08-25 10:15] LABS: Appearance Urine Clear (Clear); Bacteria Urine Automated None Seen (None Seen); Epithelial Cell Urine Auto 0-2 /hpf (0-2); Glucose Urine UA Negative (Negative); RBC Urine Automated >20 /hpf (0-2); WBC Urine Automated 0-5 /hpf (0-5)
--- NOTE | 2025-08-25 11:49 | Pharmacy Report ---
Pharmacy Glycemic Short Note 2 - Date of Service August 25, 2025 - Glycemic Short BSG Results (Last 24 hours): 08/24/25 08/24/25 08/24/25 11:40 15:38 20:07 Glucose POC Glucose 203 H 213 H 157 H 08/24/25 08/25/25 08/25/25 23:27 04:04 04:39 Glucose 161 H POC Glucose 150 H 140 H 08/25/25 08/25/25 07:14 11:28 Glucose POC Glucose 141 H 167 H OUTPATIENT ANTIDIABETIC REGIMEN: * Glimepiride 2mg PO daily * Lantus 30 units SQ HS HbA1c: 8.1% ASSESSMENT: * Pt is a 75 YOM with a history of DM2 on insulin therapy at home, POD #1 s/p PEVAR. Pharmacy consulted to assist with inpatient glycemic management. * BSGs [phone]/dl the last 24h. Received 15 units of basal and 9 units of bolus insulin yesterday. * Dexamethasone 4mg IV overridden in OR. Diet ordered. Other stressors stable. * Lantus 20 units tonight. Novolog moderate stress scale ACHS. PLAN FOR INPATIENT GLYCEMIC CONTROL: * Hold outpatient oral diabetes medications * Basal insulin * Lantus 20 units SQ HS * Bolus insulin * NovoLog per scale ACHS or Q6hrs while NPO * Goal Range: Low 110 mg/dL - High 140 mg/dL * Correction Factor: 25 mg/dL/unit * Nutritional / Prandial insulin per carb ratio of 1 unit per 8 grams CHO consumed
--- NOTE | 2025-08-25 12:29 | Surgery Progress Note ---
Date of Service August 25, 2025 Assessment & Plan (1) S/P vascular surgery: Plan: Patient pod 1 from a pevar. Procedure was uneventful. D\C home today Admission and Anticipated Discharge Date Admission Date: August 24, 2025 Subjective No complaints. No foot or leg pain. OOB in chair and ambulated in room without problem Physical Exam Constitutional: WD/WN, vitals as above Respiratory: normal respiratory effort; no respiratory distress Cardiovascular: RRR, no murmur, no edema Skin: + incision (puncture sites look good) Neurologic: CN's II-XI intact bilaterally and moves all extremities Psychiatric: A+Ox3, euthymic affect Results & Data Vital Signs (Past 12 Hours) Vital Signs Temp Pulse Resp BP Pulse Ox 08/25/25 10:00 65 15 94 08/25/25 10:00 123/59 L 08/25/25 09:30 70 16 95 08/25/25 09:30 117/63 08/25/25 09:07 137/63 08/25/25 09:06 75 21 96 08/25/25 09:01 86/54 L 08/25/25 09:00 79 15 98 08/25/25 08:30 105/61 08/25/25 08:30 105/61 08/25/25 08:30 73 20 96 08/25/25 08:05 102/53 L 08/25/25 08:03 78 23 95 08/25/25 08:00 78 22 97 08/25/25 08:00 75 08/25/25 07:30 80 22 96 08/25/25 07:30 155/62 H 08/25/25 07:00 154/67 H 08/25/25 07:00 78 18 94 08/25/25 06:30 136/65 08/25/25 06:30 79 16 94 08/25/25 06:00 80 16 92 08/25/25 06:00 145/68 H 08/25/25 05:34 36.6 C 08/25/25 05:30 143/68 H 08/25/25 05:30 143/68 H 08/25/25 05:30 80 16 94 08/25/25 05:21 81 16 96 08/25/25 05:12 77 16 95 08/25/25 05:00 94 08/25/25 04:51 83 18 94 08/25/25 04:42 90 19 93 08/25/25 04:30 160/77 H 08/25/25 04:30 86 13 95 08/25/25 04:21 87 21 96 08/25/25 04:12 171/76 H 08/25/25 04:12 84 16 94 08/25/25 04:12 171/76 H 08/25/25 04:00 85 17 96 08/25/25 04:00 162/72 H 08/25/25 03:51 83 18 94 08/25/25 03:42 82 15 92 08/25/25 03:31 80 157/79 H 08/25/25 03:30 80 18 93 08/25/25 03:30 157/79 H 08/25/25 03:21 83 15 92 08/25/25 03:16 79 167/79 H 08/25/25 03:12 79 15 94 08/25/25 03:00 82 15 94 08/25/25 03:00 167/79 H 08/25/25 02:51 83 13 95 08/25/25 02:42 81 17 92 08/25/25 02:30 166/77 H 08/25/25 02:30 84 18 94 08/25/25 02:21 83 14 95 08/25/25 02:12 83 15 94 08/25/25 02:00 160/73 H 08/25/25 02:00 85 17 94 08/25/25 01:51 83 18 93 08/25/25 01:42 84 18 93 08/25/25 01:30 152/76 H 08/25/25 01:30 84 17 93 08/25/25 01:21 93 H 13 94 08/25/25 01:12 83 18 92 08/25/25 01:00 145/73 H 08/25/25 01:00 88 17 94 08/25/25 00:51 88 18 92 08/25/25 00:42 89 17 91 08/25/25 00:30 149/72 H 08/25/25 00:30 89 17 93
[2025-08-25 13:08] VITALS: BP 108/52; PULSE 70
--- NOTE | 2025-08-25 15:05 | Discharge Summary ---
Date of Service August 25, 2025 Admission HPI Per Admitting Provider Name: EWELINA LYNN Patient Number: [id number] : 1950 Date of Service: 07/26/2025 Chief Complaint: _AAA, Follow-up after TCAR HPI: _Mr. Lynn is an elderly male who presents to Dr Gillis's vascular surgery clinic for a 2 wk follow up visit after undergoing uncomplicated R TCAR at [facility]. Pt states he is feeling well. No new problems or concerns regarding his neck incision or his groin puncture. Pt denies any sx of cerebrovascular insufficiency, including amaurosis, unilateral weakness numbness or tingling, difficulty speaking or swallowing, facial droop. Patient does state that he would like to proceed with his aneurysm surgery if he is able to do so. Previous imaging had demonstrated him to have an infrarenal AAA measuring 5.1 cm in diameter. This was amenable to endovascular repair. Current Home Meds: (Last Updated 07/26 15:24) acetaminophen (Tylenol 500 mg oral tablet) 1,000 mg PO q6h PRN: as needed for pain amLODIPine (amLODIPine 10 mg oral tablet) TAKE 1 TABLET BY MOUTH ONCE DAILY aspirin (Aspir 81 oral delayed release tablet) 81 mg PO Daily atorvastatin (atorvastatin 80 mg oral tablet) TAKE 1 TABLET BY MOUTH AT BEDTIME cannabis (Medical Marijuana) 1 inh inhaled cholecalciferol (Vitamin D3 25 mcg (1000 intl units) oral tablet) 25 mcg PO Daily clopidogrel (Plavix 75 mg oral tablet) 75 mg PO Daily diabetes supplies (LeapsetUCH ULTRA BLUE TEST STP) USE 1 STRIP TO CHECK GLUCOSE THREE TIMES DAILY BEFORE MEAL(S) diabetes supplies (COMFORT EZ [id number] MIS) diabetes supplies (Virtual Call CenterTOUCH ULTRA ULTRA JONATHAN) diabetes supplies (LeapsetUCH ULTRA 2 KIT) garlic (Garlic Oil oral capsule) 1 cap po daily glimepiride (glimepiride 2 mg oral tablet) 2 mg PO Daily hydroCHLOROthiazide (hydroCHLOROthiazide 25 mg oral tablet) TAKE 1/2 (ONE- HALF) TABLET BY MOUTH ONCE DAILY ibuprofen (ibuprofen 200 mg oral capsule) 400 mg PO q6h PRN: as needed for pain insulin glargine (Basaglar KwikPen 100 units/mL subcutaneous solution) 35 unit subQ qPM isosorbide mononitrate (isosorbide mononitrate 30 mg oral tablet, extended release) 60 mg PO qAM IMDUR (isosorbide mononitrate) is a SUSTAINED RELEASE tablet typically dosed daily. Do not confuse with ISORDIL (isosorbide dinitrate) commonly dosed three times daily. - C Murtiff 11/14 08:46 lisinopril (lisinopril 30 mg oral tablet) TAKE 1 TABLET BY MOUTH ONCE DA DIANA metoprolol (Metoprolol Succinate ER 100 mg oral tablet, extended release) TAKE 1 TABLET BY MOUTH TWICE DAILY omega-3 polyunsaturated fatty acids (EPA Fish Oil oral capsule) 1 cap PO Daily Allergies and Sensitivities: metFORMIN(stomach upset) Past Medical History: Problems: Mesenteric artery stenosis Bilateral carotid artery stenosis AAA (abdominal aortic aneurysm) without rupture Skin lesion OBJECTIVE Vitals: Last Updated 07/26/25 15:26 Date Temp BP Location Pulse RR SpO2 Pain 07/26/25 186/84 Left Arm, Manu 07/26/25 196/90 Right Arm 70 16 97 0 06/28/25 180/82 Left Arm 72 97 0 Vital Signs are the last 3 documented. No Orthostatic Data Available Height and Weight: Last Updated 07/26/25 15:25 Date BMI Wt(kg) Wt(lb) Method Ht(cm) (ft-in) Method 07/26/25 90.4 199 Standing Scale Heights and Weights are the last 3 documented. Physical Exam _Constitutional: In general patient is a healthy-appearing well-nourished well- developed elderly male in no distress. He is alert and oriented without any focal deficits. His right neck supraclavicular incision is well-healed. There is no erythema ecchymosis tenderness or discharge. His groin puncture is well- healed as well. His heart is regular, abdomen is soft nontender with no rmoactive bowel sounds in all 4 quadrants. Lungs are decreased but clear. Femoral pulses are +3. ASSESSMENT: _ PLAN: _ 1 ) _status post right TCAR Patient is over doing well since his recent procedure. He has no new concerning symptoms and his incision and puncture are healing well. We therefore would recommend that he undergo reevaluation of this in about 6 weeks with carotid US and return to the office at that time. Patient is to remain on his DAPT. This will not be interrupted for his upcoming aneurysm surgery. 2 ) _AAA Patient does have a known abdominal aortic aneurysm, imaging from June 2025 it indicated this to be about 5.1 cm in diameter. After discussion with Dr. Gillis, he recommends that patient be scheduled for percutaneous endovascular aneurysm repair. The procedure benefits and alternatives were discussed with the patient by myself. The risks of the procedure including but not limited to bleeding, infection, blood clots, artery damage requiring further surgery, inappropriate positioning/placement of the endograft requiring open surgery, kidney failure requiring hemodialysis, loss of limb, paralysis, heart attack, , were discussed with the patient by myself at Dr. Gillis's request. Patient expresses understanding and agreement to proceed. Patient's blood pressures were noted to be considerably elevated in our office today at 196/90 mmHg. Patient states that they have been high recently at home. We would suggest improved control of his blood pressure prior to undergoing his procedure. We will request clearance from his bookkeeper assistant for the upcoming procedure, as well as to assist with improved hypertension control in the perioperative period. Patient is agreeable to this plan. He is asked to call our office with any questions or concerns. Thank you for letting us participate in the care of this patient. I have personally spent_28__ minutes performing vutv-eq-uusa and idr-eyfi-ct-face activities on this date of service.Time does not include separately reported services. Activities Include: x__ review of the medical record _x_ obtaining a history _x_ physical exam/evaluation __ review labs _x_ review radiology reports _x_ counseling/educating patient/family/caregiver _x_ discussion/referral to other healthcare professional _x_ documenting care in the medical record __ independent interpretation of results _x_ communication of results to patient/family/caregiver _x_ coordination of care Signature Line Electronic Signature on File CC: Billie Alvarado PA-C [facility] [address] [facility] [id number] * CC: Ousmane Chávez MD [facility] [address] [address] * Electronically Reviewed/Signed by: Dorina Galindo PA-C Author Signature Dt/Tm:07/26/2025 04:29 PM [facility] [place] [address] [facility] [address], [address] [place] [address] LM Result Type: HVI Outpt Note Date of Service: July 26, 2025 16:19 EDT Authorization Status: Final Author or Import Date: KAREN Galindo Lynn on July 26, 2025 16:29 EDT Verified By: KAREN Galindo Lynn on July 26, 2025 16:29 EDT Encounter info: [id number], [place] [address], Clinic, 07/26/2025 - 07/26/2025 Admission Exam Per Admitting Provider _Constitutional: In general patient is a healthy-appearing well-nourished well- developed elderly male in no distress. He is alert and oriented without any focal deficits. His right neck supraclavicular incision is well-healed. There is no erythema ecchymosis tenderness or discharge. His groin puncture is well- healed as well. His heart is regular, abdomen is soft nontender with normoactive bowel sounds in all 4 quadrants. Lungs are decreased but clear. Femoral pulses are +3. Principal Diagnosis 1. s/p PEVAR 2. AAA Discharge Exam Constitutional WD/WN, vitals as above Respiratory normal respiratory effort; no respiratory distress Cardiovascular RRR, no murmur, no edema Skin + incision (puncture sites look good) Neurologic CN's II-XI intact bilaterally and moves all extremities Psychiatric A+Ox3, euthymic affect Discharge Data Allergies Allergy/AdvReac Type Severity Reaction Status Date / Time metformin AdvReac Mild Diarrhea Verified 08/24/25 06:30 Consultations 08/24/25 11:53 Consult Food Sanitarian Routine Procedures Performed Operation Date: 08/24/25 08:00 Actual Procedures p Percutaneous Endovascular Abdominal Aortic Aneurysm Repair,Mechanical Closure of Bilateral Femoral Arteries(Bilateral) - Solomon Gillis MD Ordered Studies 08/24/25 07:38 EV Angio Abdomen Aorta Routine Hospital Course (1) S/P vascular surgery: Patient pod 1 from a pevar. Procedure was uneventful. D\C home today Total Time Total Time Spent Total Time Spent (In Minutes): 0 Discharge Plan Discharge Items Patient Disposition: Home - Self-Care Reason For Visit: Abdominal Aortic Aneurysm Discharge Diagnosis: Abdominal aortic aneurysm Activity: Per Instructions section Non-emergency contact: Surgeon Call non-emergency contact if: your temperature is above 101.5, your wound has increased redness, your wound has increased drainage and your wound pain has increased Follow-up/Referrals: Billie Alvarado PA-C [Primary Care Provider] - (Office aware. Will call pt to schedule) Diet: Heart Healthy Addtl Attending Provider Instructions: SPECIAL CARE INSTRUCTIONS: Diet: * You may return to previous diet. Medications: * Continue to take your medications as directed. Incision/Puncture Site Care: * You will have an incision or puncture in each of your groins. Liquid glue will be used to seal your incisions/puncture site. This will lift off as the incisions/puncture sites heal. * If Liquid glue is not used, there will be small dressings covering your incisions. After you get home, you may remove the dressings and shower - allowing the warm soapy water to run over it. * Be sure to dry the sites well and keep them dry. * DO NOT SOAK IN A TUB/POOL/etc. UNTIL ALL SURGICAL SITES ARE HEALED. DO NOT REMOVE THE GLUE UNTIL THE INCISIONS HEAL. Restrictions: * Limit yourself to aerologist activity for the first week. * You may walk and go up and down steps. * Avoid excessive bending or movement at the level of the incisions or punctures. Risks and Possible Complications: * Infection/Drainage/Bleeding - Drainage or bleeding from the incisions/puncture site should be minimal. If you have excessive bleeding or drainage, call our office ([phone]) right away. * Pain/Numbness - You may experience some mild pain or soreness at your incision sites. You may also have some numbness around the incisions or into the insides of your thighs. Bruising is normal and should resolve within 2 weeks. * Changes in Appetite or Bowel Habits - Mostly related to anesthesia and pain medication, some patients have reported decreased appetite and/or problems with constipation. These symptoms usually improve over a few weeks. Remembering to take an gsvp-nnd-iwezamd stool softener, as directed, will help you to avoid constipation. Call our office and seek emergent treatment if you develop: * Fever or chills * Have a temperature greater than 101 degrees F * Any redness or purulent drainage from your incisions or punctures * Severe abdominal, chest or back pain SKIN IRRITATION: * You may experience some redness and/or swelling in the area where radiation was administered. If any skin irritation occurs, please contact your family physician. You will be receiving a call from the Vascular Surgery Nurse after you are discharged. FOLLOW UP VISIT: It is important for you to keep your follow up appointments with your medical provider. Keep any scheduled doctor appointments. Call [phone] to schedule a follow up appointment if one not already scheduled. Pending Studies at Discharge: No Stand-Alone Forms: My [facility], Smoking Cessation Medications and DC Order Prescriptions: New oxycodone 5 mg Tablet 5 mg PO Q6H PRN (Reason: pain) Qty: 30 0RF Continued (DME) Dexcom G7 Sensor Device See Rx Instructions .ROUTE .MEDSUPPLY Qty: 9 3RF Rx Instructions: change sensor every 10 days lisinopril 30 mg tablet 30 mg PO QAM isosorbide mononitrate 60 mg tablet extended release 24 hr 60 mg PO QAM amlodipine 10 mg tablet 10 mg PO QAM atorvastatin 80 mg tablet 80 mg PO HS omega 0-ahl-spz-fish oil [Fish Oil] 300-1,000 mg capsule 1 cap PO DAILY garlic 1,000 mg capsule 1,000 mg PO DAILY aspirin 81 mg tablet,delayed release (DR/EC) 81 mg PO DAILY acetaminophen 500 mg tablet 500 mg PO Q6H PRN (Reason: Pain) insulin glargine [Basaglar KwikPen U-100 Insulin] 100 unit/mL (3 mL) insulin pen 30 unit subcut QPM Rx Instructions: 30units glimepiride 2 mg tablet 2 mg PO QAM hydrochlorothiazide 25 mg tablet 12.5 mg PO QAM metoprolol succinate [Toprol XL] 100 mg tablet extended release 24 hr 100 mg PO BID cholecalciferol (vitamin D3) 25 mcg (1,000 unit) capsule 25 mcg PO DAILY Qty: 30 0RF ibuprofen 200 mg tablet 200 mg PO Q6H PRN (Reason: Pain) clopidogrel [Plavix] 75 mg Tablet 75 mg PO QAM oxycodone 5 mg Tablet 5 mg PO Q6H PRN (Reason: pain) Qty: 7 0RF Patient Comments: does not take this doxazosin 2 mg Tablet 2 mg PO DAILY Discharge Orders: Discharge Order (Routine); Ordered 08/25/25 Ordered By: Solomon Deleon/Other Patient Handouts: Managing Type 2 Diabetes Admission Data Admit Date/Time: 08/24/25 07:49 Attending Provider: Solomon Gillis Admit Provider: Solomon Gillis Primary Care Provider: Billie Alvarado Other Providers: Dennis Schmitt; Victoriano Lazar; Félix Mcfarlane; Marly Kang; Reyes Wasserman; Estefani Dias; Ranjan Ji; Abbe Muniz; Paola Nguyễn; Ousmane Li; Yocasta Watters Other Interventions: Discharge Summary Assessment (RN) Last Done: 08/25/25 13:06
[2025-08-25] MEDS ORDERED: LANTUS PER UNIT CHARGE SC SCH (21:00)
== END 2025-08-25 13:43 | disposition home or self-care (01) | DRG 269 ==
LOC: ASU 06:17 → 1E 09:29
DX: I25.10 Atherosclerotic heart disease of native coronary artery without angina pectoris; E11.22 Type 2 diabetes mellitus with diabetic chronic kidney disease; Z79.02 Long term (current) use of antithrombotics/antiplatelets; I65.22 Occlusion and stenosis of left carotid artery; R33.9 Retention of urine, unspecified; Z79.4 Long term (current) use of insulin; Z79.82 Long term (current) use of aspirin; I71.40 Abdominal aortic aneurysm, without rupture, unspecified; Z87.891 Personal history of nicotine dependence; I70.1 Atherosclerosis of renal artery; E87.20 Acidosis, unspecified; Z79.84 Long term (current) use of oral hypoglycemic drugs; N18.30 Chronic kidney disease, stage 3 unspecified; I12.9 Hypertensive chronic kidney disease with stage 1 through stage 4 chronic kidney disease, or unspecified chronic kidney disease; Z95.1 Presence of aortocoronary bypass graft; I70.8 Atherosclerosis of other arteries; Z98.890 Other specified postprocedural states; I25.2 Old myocardial infarction; I16.0 Hypertensive urgency